=== PATIENT | female | born 1975 | race African-American/Black ===

== ENCOUNTER → 2016-07-01 | Outpatient (CLI) | payer OTHER ==
[~2016-07-01] VITALS: Ht 162.6 cm; Wt 52.6 kg
[~2016-07-01] MED LIST: EX-L15TA PO; LIDOCAINE 2% INJ 100 MG/5 ML SDV (FOR ANES.) As Ordered ONE; MULT1TAB10 PO; NS 1,000 ML IV SCH; PHENYLephrine HCL 500 MCG/5 ML (100MCG/ML) SYRINGE (J2370) As Ordered ONE; PROPOFOL 500 MG/50 ML VIAL As Ordered ONE
--- NOTE | 2016-07-01 10:43 | ROOR ---
Patient Name: Ermelinda Weiss Procedure Date: 07/01/2016 10:32 AM Date of : 1975 Age: 41 Room: [facility] Gender: Female Note Status: Finalized Procedure: Upper GI endoscopy Indications: Functional Dyspepsia, Indigestion Providers: Jaime BANDA MD Referring MD: Curt Blair MD Requesting Provider: Medicines: Monitored Anesthesia Care Complications: No immediate complications. Procedure: Pre-Anesthesia Assessment: - The heart rate, respiratory rate, oxygen saturations, blood pressure, adequacy of pulmonary ventilation, and response to care were monitored throughout the procedure. The Endoscope was introduced through the mouth, and advanced to the second part of duodenum. The upper GI endoscopy was accomplished without difficulty. The patient tolerated the procedure well. Findings: The esophagus was normal. The stomach was normal. The examined duodenum was normal. Impression: - Normal esophagus. - Normal stomach. - Normal examined duodenum. - No specimens collected. Recommendation: - Continue present medications. Jaime Banda MD Jaime BANDA MD 07/01/2016 10:43:40 AM This report has been signed electronically. Number of Addenda: 0 Note Initiated On: 07/01/2016 10:32 AM Estimated Blood Loss: Estimated blood loss: none.
--- NOTE | 2016-07-01 10:58 | ROOR ---
Patient Name: Ermelinda Weiss Procedure Date: 07/01/2016 10:33 AM Date of : 1975 Age: 41 Room: [facility] Gender: Female Note Status: Finalized Procedure: Colonoscopy Indications: Hematochezia, Irritable bowel syndrome with constipation Providers: Jaime BANDA MD Referring MD: Curt Blair MD Requesting Provider: Medicines: Monitored Anesthesia Care Complications: No immediate complications. Procedure: Pre-Anesthesia Assessment: - The heart rate, respiratory rate, oxygen saturations, blood pressure, adequacy of pulmonary ventilation, and response to care were monitored throughout the procedure. The Colonoscope was introduced through the anus and advanced to the terminal ileum, with identification of the appendiceal orifice and IC valve. The colonoscopy was performed without difficulty. The patient tolerated the procedure well. The quality of the bowel preparation was good. Findings: The perianal exam findings include skin tags. Internal hemorrhoids were found during retroflexion. The hemorrhoids were small. The entire examined colon appeared normal on direct and retroflexion views. The terminal ileum appeared normal. (Exam: Complete, Prep: Good or Excellent.) Impression: - Perianal skin tags found on perianal exam. - Internal hemorrhoids. - The entire colon is normal on direct and retroflexion views. - The examined portion of the ileum was normal. - No specimens collected. Recommendation: - Use Linzess (linaclotide) 290 mcg PO daily. Jaime Banda MD Jaime BANDA MD 07/01/2016 10:57:56 AM This report has been signed electronically. Number of Addenda: 0 Note Initiated On: 07/01/2016 10:33 AM Estimated Blood Loss: Estimated blood loss: none.
[2016-07-01 11:25] VITALS: BP 112/67
== END | disposition home or self-care (01) ==
LOC: M OPP 08:46
PROVIDERS: ATTEND Internal Medicine Gastroenterology
DX: K92.1 Melena (principal); K58.1 Irritable bowel syndrome with constipation; K64.4 Residual hemorrhoidal skin tags; K64.8 Other hemorrhoids; K30 Functional dyspepsia; E78.5 Hyperlipidemia, unspecified; R23.3 Spontaneous ecchymoses; Z91.018 Allergy to other foods; Z79.899 Other long term (current) drug therapy; Z80.3 Family history of malignant neoplasm of breast
CPT/HCPCS: 43235; 45378; 99156; 99157; J2370

== ENCOUNTER → 2016-10-20 | Outpatient (REF) | payer OTHER ==
[~2016-10-20] MED LIST changes: -LIDOCAINE 2% INJ 100 MG/5 ML SDV (FOR ANES.) As Ordered ONE; -NS 1,000 ML IV SCH; -PHENYLephrine HCL 500 MCG/5 ML (100MCG/ML) SYRINGE (J2370) As Ordered ONE; -PROPOFOL 500 MG/50 ML VIAL As Ordered ONE
== END ==
LOC: M SFHCPLAZ 11:22
PROVIDERS: ATTEND Family Medicine
DX: L65.9 Nonscarring hair loss, unspecified (principal)

== ENCOUNTER → 2017-01-14 | Outpatient (REF) | payer OTHER | LOC: M LAB REF 11:30 | PROVIDERS: ATTEND Family Medicine | DX: L65.9 Nonscarring hair loss, unspecified (principal) ==